=== PATIENT | female | born 1955 | race Two or more races ===

== ENCOUNTER → 2020-03-18 | Outpatient (CLI) | payer OTHER ==
--- NOTE | 2020-03-18 13:36 | RAD ---
EXAM: Chest sonogram. HISTORY: Sternoclavicular joint swelling and pain. TECHNIQUE: Sonographic imaging of the left sternoclavicular joint at the site of palpable concern was performed. COMPARISON: None. FINDINGS: There is no suspicious finding within the left superior chest wall at the level of the ster noclavicular joints at the site of concern. Specifically, no mass or fluid collection is seen. There is no lymphadenopathy. IMPRESSION: No suspicious sonographic correlate for reported palpable abnormality at the left sternoc lavicular joint. Radiographic evaluation or cross sectional imaging can be performed if there is conc primitivo for a sonographically occult lesion. Electronically signed by: Leslie Felix MD (03/18/2020 1:33 PM) [id number]
== END ==
LOC: US 12:30
PROVIDERS: ATTEND Family Medicine
DX: M25.412 Effusion, left shoulder (principal)
CPT/HCPCS: 76881